=== PATIENT | female | born 1965 | race Hispanic/Latino ===

== ENCOUNTER 2016-04-30 12:21 | Emergency (ER) | payer SELFPAY ==
--- NOTE | 2016-04-30 14:07 | Emergency Department Report ---
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 The school nurse took the patient's blood pressure which measured low. - ROS Review of Systems: all other systems are unremarkable except for documentation in HPI - Exam Vital Signs: Vital Signs 04/30/16 13:00 Temperature 98.8 F Pulse Rate 83 Respiratory 16 Rate Blood Pressure 138/88 O2 Sat by Pulse 100 Oximetry Physical Exam: Gen: well developed and nourished, NAD Cardio: heart sounds present S1-S2, no ectopy, mummer or gallops Resp: even and unlabored, lungs CTA allen, no wheezes, rales or rhochi MSE screening note: Focused history and physical exam performed. Due to findings the following was ordered: orthostatics, laboratory and radiology studies ordered ED Disposition for MSE Condition: Stable
[2016-04-30 14:42] LABS: Basophils % (Auto) 0.3 % (0.0-1.8); Hematocrit 39.2 % (30.3-42.9); Hemoglobin 12.6 gm/dl (10.1-14.3); Mean Corpuscular HGB Conc 32 % (30-34); Mean Corpuscular Hemoglobin 27 pg (28-32); Mean Corpuscular Volume 84 fl (79-97); Platelet Count 425 K/mm3 (140-440); Red Blood Count 4.65 M/mm3 (3.65-5.03); Red Cell Distribution Width 17.6 % (13.2-15.2); White Blood Count 16.9 K/mm3 (4.5-11.0)
[2016-04-30 14:53] LABS: INR 1.29 (0.87-1.13)
[2016-04-30 15:04] LABS: Alanine Aminotransferase 11 units/L (7-56); Albumin 4.6 g/dL (3.9-5); Albumin/Globulin Ratio 1.2 %; Alkaline Phosphatase 66 units/L (35-129); Bilirubin,Total 0.3 mg/dL (0.1-1.2); Blood Urea Nitrogen 14 mg/dL (7-17); Calcium 9.3 mg/dL (8.4-10.2); Carbon Dioxide 21 mmol/L (22-30); Creatine Kinase 139 units/L (30-135); Creatine Kinase MB 3.7 ng/mL (0.0-4.0); Glucose 115 mg/dL (65-100); Potassium 3.7 mmol/L (3.6-5.0); Sodium 136 mmol/L (137-145); Total Protein 8.4 g/dL (6.3-8.2)
[2016-04-30 15:06] LABS: Anion Gap 23 mmol/L
[2016-04-30 15:34] LABS: Bacteria,Urine 2+ /HPF (Negative); Bilirubin,Urine NEG (Negative); Blood,Urine NEG (Negative); Ketones,Urine 20 mg/dL (Negative); Leukocyte Esterase,Urine TR (Negative); Mucus,Urine 3+ /HPF; Nitrite,Urine NEG (Negative); Protein,Urine <15 mg/dL mg/dL (Negative); Urobilinogen,Urine < 2.0 mg/dL (<2.0)
[2016-04-30] MEDS ORDERED: ZOFRAN ODT ONE (18:41)
[2016-04-30] MEDS ORDERED: ZOFRAN ODT PO ONE (18:44)
--- NOTE | 2016-05-01 01:19 | Emergency Department Report ---
HPI - General Chief Complaint: Weakness Time Seen by Provider: 05/01/16 00:59 - HPI HPI: Room 2 The patient is a 51-year-old female presenting with a chief complaint of nausea and headache. The patient states this morning she awakened at 06:30 with a headache. The patient states she took a hydrocodone tablet and then went to work. The patient states that morning in school she began to feel nauseous so she sat down however the nausea increased. Patient went to the school nurse where her vitals were checked. The patient was found to be hypotensive at 80/ 54. The patient was placed in the supine position with her feet elevated and waited for approximately 3 hours for her daughter to arrive. The daughter came to the school and took the patient to the emergency department. The patient states while she was in the waiting room her headache had increased to a full- blown migraine and she feels as though her face turned red. The headache is now improved down to a "regular headache." The patient gives the pain a score of 5/10. Patient states she now just feels tired Location: Head Duration: [see above] Quality: Headache Severity: See Above, currently 5/10 Modifying factors: [see above] Context: [see above] Mode of transportation: [not driving] ED Past Medical Hx - Past Medical History Previous Medical History?: Yes Hx Hypertension: Yes Hx Headaches / Migraines: Yes - Surgical History Past Surgical History?: Yes Additional Surgical History: - Family History Family history: no significant - Social History Smoking Status: Never Smoker Substance Use Type: Prescribed - Medications Home Medications: Home Medications Medication Instructions Recorded Confirmed Last Taken Type Atenolol [Tenormin] 25 mg PO DAILY 04/30/16 04/30/16 04/29/16 18:00 History HCTZ 12.5 mg PO DAILY 04/30/16 05/01/16 04/29/16 18:00 History Butalb/Acetamin/Caff 50-325-40 1 tab PO Q8HR PRN #10 tablet 05/01/16 Unknown Rx [Fioricet] ED Review of Systems ROS: Stated complaint: BP LOW/DIZZY Other details as noted in HPI Comment: All other systems reviewed and negative Constitutional: denies: chills, fever Eyes: denies: eye pain, eye discharge, vision change ENT: denies: ear pain, throat pain Respiratory: denies: cough, shortness of breath, wheezing Cardiovascular: denies: chest pain, palpitations Endocrine: no symptoms reported Gastrointestinal: nausea. denies: vomiting Genitourinary: denies: urgency, dysuria, discharge Musculoskeletal: denies: back pain, joint swelling, arthralgia Skin: denies: rash, lesions Neurological: headache Psychiatric: denies: anxiety, depression Hematological/Lymphatic: denies: easy bleeding, easy bruising Physical Exam - Physical Exam Vital Signs: Vital Signs 04/30/16 04/30/16 04/30/16 13:00 22:17 23:41 Temperature 98.8 F 98.0 F 98.0 F Pulse Rate 83 81 75 Respiratory 16 18 18 Rate Blood Pressure 138/88 117/72 Blood Pressure 164/72 [Left] O2 Sat by Pulse 100 100 100 Oximetry 05/01/16 00:18 Temperature Pulse Rate Respiratory 20 Rate Blood Pressure Blood Pressure [Left] O2 Sat by Pulse 99 Oximetry Physical Exam: GENERAL: The patient is well-developed well-nourished male lying on stretcher not appearing to be in acute distress. [] HEENT: Normocephalic. Atraumatic. Extraocular motions are intact. Patient has moist mucous membranes. No Nystagmus NECK: Supple. No meningitic signs are noted. Trachea midline CHEST/LUNGS: Clear to auscultation. There is no respiratory distress noted. HEART/CARDIOVASCULAR: Regular. There is no tachycardia. There is no gallop rub or murmur. ABDOMEN: Abdomen is soft, nontender. Patient has normal bowel sounds. There is no abdominal distention. SKIN: There is no rash. There is no edema. There is no diaphoresis. NEURO: The patient is awake, alert, and oriented. The patient is cooperative. The patient has no focal neurologic deficits. The patient has normal speech. Cranial nerves II through XII grossly intact, no drift. MUSCULOSKELETAL: There is no evidence of acute injury. ED Course Vital Signs 04/30/16 04/30/16 04/30/16 13:00 22:17 23:41 Temperature 98.8 F 98.0 F 98.0 F Pulse Rate 83 81 75 Respiratory 16 18 18 Rate Blood Pressure 138/88 117/72 Blood Pressure 164/72 [Left] O2 Sat by Pulse 100 100 100 Oximetry 05/01/16 00:18 Temperature Pulse Rate Respiratory 20 Rate Blood Pressure Blood Pressure [Left] O2 Sat by Pulse 99 Oximetry ED Medical Decision Making - Lab Data Result diagrams: 04/30/16 14:18 04/30/16 14:18 Laboratory Tests 04/30/16 04/30/16 04/30/16 14:18 14:18 14:18 WBC 16.9 H RBC 4.65 Hgb 12.6 Hct 39.2 MCV 84 MCH 27 L MCHC 32 RDW 17.6 H Plt Count 425 Lymph % (Auto) 10.9 L [place] % (Auto) 2.0 Eos % (Auto) 0.0 Baso % (Auto) 0.3 Lymph # 1.9 [place] # 0.3 Eos # 0.0 Baso # 0.0 Seg Neutrophils % 86.8 H Seg Neutrophils # 14.7 H PT 16.0 H INR 1.29 H Sodium 136 L Potassium 3.7 Chloride 96.0 L Carbon Dioxide 21 L Anion Gap 23 BUN 14 Creatinine 0.7 Estimated GFR > 60 BUN/Creatinine Ratio 20.00 Glucose 115 H Calcium 9.3 Total Bilirubin 0.3 AST 18 ALT 11 Alkaline Phosphatase 66 Total Creatine Kinase 139 H CK-MB (CK-2) 3.7 CK-MB (CK-2) Rel Index 2.6 Troponin T < 0.010 Total Protein 8.4 H Albumin 4.6 Albumin/Globulin Ratio 1.2 HCG, Quant Urine Color Urine Turbidity Urine pH Ur Specific [place] Urine Protein Urine Glucose (UA) Urine Ketones Urine Blood Urine Nitrite Urine Bilirubin Urine Urobilinogen Ur Leukocyte Esterase Urine WBC (Auto) Urine RBC (Auto) U Epithel Cells (Auto) Urine Bacteria (Auto) Urine Mucus 04/30/16 04/30/16 14:18 15:12 WBC RBC Hgb Hct MCV MCH MCHC RDW Plt Count Lymph % (Auto) [place] % (Auto) Eos % (Auto) Baso % (Auto) Lymph # [place] # Eos # Baso # Seg Neutrophils % Seg Neutrophils # PT INR Sodium Potassium Chloride Carbon Dioxide Anion Gap BUN Creatinine Estimated GFR BUN/Creatinine Ratio Glucose Calcium Total Bilirubin AST ALT Alkaline Phosphatase Total Creatine Kinase CK-MB (CK-2) CK-MB (CK-2) Rel Index Troponin T Total Protein Albumin Albumin/Globulin Ratio HCG, Quant < 2 Urine Color Yellow Urine Turbidity Cloudy Urine pH 5.0 Ur Specific [place] 1.014 Urine Protein <15 mg/dl Urine Glucose (UA) Neg Urine Ketones 20 Urine Blood Neg Urine Nitrite Neg Urine Bilirubin Neg Urine Urobilinogen < 2.0 Ur Leukocyte Esterase Tr Urine WBC (Auto) 4.0 Urine RBC (Auto) 0.0 U Epithel Cells (Auto) 25.0 H Urine Bacteria (Auto) 2+ Urine Mucus 3+ - EKG Data -: EKG Interpreted by Me EKG shows normal: sinus rhythm Rate: normal - EKG Data When compared to previous EKG there are: previous EKG unavailable Interpretation: other (no ischemic changes seen) - Radiology Data Radiology results: report reviewed (CT head), image reviewed (CT head) CT head (read by radiologist)-no evidence of an acute intracranial process - Differential Diagnosis medication reaction, vasovagal episode, ICH, Critical care attestation.: If time is entered above; I have spent that time in minutes in the direct care of this critically ill patient, excluding procedure time. ED Disposition Clinical Impression: Headache, Leukocytosis, Nausea Disposition: DISCHARGED TO HOME OR SELFCARE Is pt being admited?: No Does the pt Need Aspirin: No Condition: Fair Instructions: Migraine Headache (ED), Acute Headache (ED) Additional Instructions: Return to the emergency department immediately should you develop worsening symptoms, fever, inability to tolerate food or liquid or any other concerns. Prescriptions: Butalb/Acetamin/Caff 50-325-40 [Fioricet] 1 tab PO Q8HR PRN #10 tablet PRN Reason: Headache Referrals: PRIMARY CARE, [Primary Care Provider] - 3-5 Days RETA CHEEK MD [Staff Physician] - 3-5 Days (Dr. Cheek is a neurologist. Please follow up with him for further evaluation) Time of Disposition: 02:14
[2016-05-01 01:29] LABS: Urine Drugs of Abuse Note Disclamer
--- NOTE | 2016-05-01 02:07 | Cat Scan Report ---
FINAL REPORT PROCEDURE: CT HEAD/BRAIN WO CON TECHNIQUE: Computerized tomography of the head was performed without contrast material. HISTORY: headache, nausea COMPARISON: No prior studies are available for comparison. FINDINGS: Skull and scalp: Normal. Paranasal sinuses: Normal. Ventricles and subarachnoid spaces: Normal. Cerebrum: No evidence of hemorrhage, acute infarction or mass . Cerebellum and brainstem: No evidence of hemorrhage, acute infarction or mass. Vasculature: Normal. Comments: None. IMPRESSION: There is no evidence of an acute intracranial process
[2016-05-01 02:48] VITALS: BP 145/76
== END 2016-05-01 03:01 | disposition home or self-care (01) ==
LOC: ED 12:21
DX: R51 Headache (principal); D72.829 Elevated white blood cell count, unspecified; R11.0 Nausea; I10 Essential (primary) hypertension; G43.909 Migraine, unspecified, not intractable, without status migrainosus
CPT/HCPCS: 36415; 70450; 80053; 80307; 81001; 82550; 82553; 84484; 84702; 85025; 85610; 93005; 93010; Q0162